=== PATIENT | male | born 1950 | race Caucasian/White ===

== ENCOUNTER → 2017-09-22 | Outpatient (CLI) | payer MEDICARE ==
[~2017-09-22] MED LIST: DUO-KAPS1 CAP PO; FLOMAX 0.40.4 MG/CAP PO; FOLIC ACID 11 MG/TA1 PO; LASIX 40MG TABL40 MG PO; LEVAQUIN 750MG750 M1 PO; THIAMINE 1100 MG/TAB PO; TOPROL XL 25MG25 MG PO; VITAMIN D 50,1.25 MG PO; ZESTRIL 5MG5 MG PO
[2017-09-22 13:10] LABS: MEAN CELL VOLUME 92 fl (80.0-100.0); MEAN CORPUSCULAR HGB CONC 32 g/dl (33.0-37.0); MEAN PLATELET VOLUME 9.7 fl (7.4-10.4); PLATELET COUNT 89 K/mm3 (130-400); RED BLOOD COUNT 3.94 M/mm3 (4.20-5.60)
[2017-09-22 13:11] LABS: HEMATOCRIT 36.3 % (42.0-52.0); HEMOGLOBIN 11.5 g/dl (13.5-18.0); MEAN CORPUSCULAR HEMOGLOBIN 29 pg (27.0-31.0)
[2017-09-22 13:20] LABS: CALCIUM 9.2 mg/dL (8.4-10.2); CREATININE, serum 0.63 mg/dL (0.66-1.25); MAGNESIUM 1.4 mg/dL (1.6-2.3); POTASSIUM 3.7 mmol/L (3.4-5.0)
== END ==
LOC: COL.LAB 12:25
PROVIDERS: Internal Medicine
DX: Z01.89 Encounter for other specified special examinations (principal)

== ENCOUNTER 2017-09-29 07:16 | Outpatient (CLI) | payer MEDICARE ==
[~2017-09-29] VITALS: Ht 182.9 cm; Wt 65.7 kg
[2017-09-29] MEDS ORDERED: VITAMIN D 50,1.25 MG PO (08:13)
[2017-09-29] MEDS ORDERED: MULTIPLE VITAMI1 CAP PO (08:13)
[2017-09-29] MEDS ORDERED: TOPROL XL 25MG25 MG PO (08:14)
[2017-09-29] MEDS ORDERED: FLOMAX 0.40.4 MG/CAP PO (08:14)
[2017-09-29] MEDS ORDERED: FOLIC ACID 11 MG/TA1 PO (08:15)
[2017-09-29] MEDS ORDERED: ZESTRIL 5MG5 MG PO (08:15)
[2017-09-29] MEDS ORDERED: NATURE'S BLEND100 M2 PO (08:16)
[2017-09-29] MEDS ORDERED: LASIX 40MG TABL40 MG PO (08:17)
[2017-09-29 08:21] VITALS: BP 133/82; PULSE 92; TEMP 97.7
[2017-09-29 09:35] VITALS: BP 127/78; PULSE 76
[2017-09-29 09:50] VITALS: BP 132/79; PULSE 75
[2017-09-29 10:05] VITALS: BP 124/76; PULSE 76
[2017-09-29 10:30] VITALS: BP 128/78; PULSE 76
== END 2017-09-29 10:50 | disposition home or self-care (01) ==
LOC: SDCO 07:16
DX: D64.9 Anemia, unspecified (principal); R16.1 Splenomegaly, not elsewhere classified; D72.829 Elevated white blood cell count, unspecified

== ENCOUNTER → 2017-10-22 | Outpatient (CLI) | payer MEDICARE ==
[~2017-10-22] MED LIST changes: +MULTIPLE VITAMI1 CAP PO; +NATURE'S BLEND100 M2 PO
[2017-10-23 00:07] LABS: FOLATE (FOLIC ACID) 14.3 ng/mL (7.0-31.4)
== END ==
LOC: COL.LAB 13:44
PROVIDERS: Family Medicine
DX: E55.9 Vitamin D deficiency, unspecified (principal); E53.8 Deficiency of other specified B group vitamins; R79.0 Abnormal level of blood mineral

== ENCOUNTER 2017-10-27 11:43 | Day surgery (SDC) | payer MEDICARE ==
[~2017-10-27] VITALS: Ht 182.9 cm; Wt 63.9 kg
[2017-10-27] VITALS (9 sets, daily range): BP systolic 132–150; BP diastolic 73–87; PULSE 62–87; TEMP 97.8–98.3
[2017-10-27 12:29] LABS: MEAN CELL VOLUME 96 fl (80.0-100.0); MEAN CORPUSCULAR HGB CONC 31 g/dl (33.0-37.0); PLATELET COUNT 140 K/mm3 (130-400); RED BLOOD COUNT 3.51 M/mm3 (4.20-5.60); REDCELL DISTRIBUTION WIDTH-CV 23.1 % (11.5-14.5)
[2017-10-27 12:30] LABS: HEMATOCRIT 33.7 % (42.0-52.0); HEMOGLOBIN 10.4 g/dl (13.5-18.0); MEAN CORPUSCULAR HEMOGLOBIN 30 pg (27.0-31.0)
[2017-10-27] MEDS ORDERED: HYDROXYURE500 MG/CAP PO (12:31)
[2017-10-27] MEDS ORDERED: ALDACTONE 25MG25 M1 PO (12:31)
[2017-10-27 12:42] LABS: INR 1.3 (0.8-3.0); PROTHROMBIN TIME 14.8 SECONDS (9.7-12.8)
[2017-10-27 12:52] LABS: CALCIUM 9.7 mg/dL (8.4-10.2); CREATININE, serum 0.61 mg/dL (0.66-1.25); POTASSIUM 4.3 mmol/L (3.4-5.0)
== END 2017-10-27 17:18 | disposition home or self-care (01) ==
LOC: COL.CAR 11:43
PROVIDERS: Internal Medicine Interventional Cardiology
DX: I25.10 Atherosclerotic heart disease of native coronary artery without angina pectoris (principal); R94.39 Abnormal result of other cardiovascular function study; I50.22 Chronic systolic (congestive) heart failure; I07.1 Rheumatic tricuspid insufficiency; I25.2 Old myocardial infarction; I42.6 Alcoholic cardiomyopathy; D72.829 Elevated white blood cell count, unspecified
CPT/HCPCS: J2250; J3010; Q9967

== ENCOUNTER → 2017-12-09 | Outpatient (CLI) | payer MEDICARE ==
[~2017-12-09] MED LIST changes: +ALDACTONE 25MG25 M1 PO; +HYDROXYURE500 MG/CAP PO
[2017-12-09 17:24] LABS: MEAN CELL VOLUME 101 fl (80.0-100.0); MEAN CORPUSCULAR HGB CONC 32 g/dl (33.0-37.0); MEAN PLATELET VOLUME 9.3 fl (7.4-10.4); PLATELET COUNT 57 K/mm3 (130-400); RED BLOOD COUNT 2.78 M/mm3 (4.20-5.60); REDCELL DISTRIBUTION WIDTH-CV 25.2 % (11.5-14.5)
[2017-12-09 17:28] LABS: HEMATOCRIT 28.1 % (42.0-52.0); HEMOGLOBIN 9.1 g/dl (13.5-18.0); MEAN CORPUSCULAR HEMOGLOBIN 33 pg (27.0-31.0)
[2017-12-09 17:34] LABS: CALCIUM 9.2 mg/dL (8.4-10.2); CREATININE, serum 0.81 mg/dL (0.66-1.25); POTASSIUM 4.2 mmol/L (3.4-5.0)
== END ==
LOC: COL.LAB 17:06
PROVIDERS: Internal Medicine Interventional Cardiology
DX: I70.213 Atherosclerosis of native arteries of extremities with intermittent claudication, bilateral legs (principal)

== ENCOUNTER → 2018-11-16 | Outpatient (CLI) | payer MEDICARE | LOC: COL.RAD 09:45 | DX: R16.1 Splenomegaly, not elsewhere classified (principal); D75.81 Myelofibrosis ==

== ENCOUNTER 2019-11-28 10:35 | Emergency (ER) | payer MEDICARE ==
[~2019-11-28] VITALS: Ht 182.9 cm; Wt 65.9 kg
[2019-11-28 10:47] VITALS: TEMP 97.6
[2019-11-28 11:26] LABS: MEAN CELL VOLUME 95 fl (80.0-100.0); MEAN CORPUSCULAR HGB CONC 30 g/dl (33.0-37.0); RED BLOOD COUNT 2.91 M/mm3 (4.20-5.60); REDCELL DISTRIBUTION WIDTH-CV 23.9 % (11.5-14.5)
[2019-11-28 11:30] LABS: HEMATOCRIT 27.5 % (42.0-52.0); HEMOGLOBIN 8.2 g/dl (13.5-18.0); MEAN CORPUSCULAR HEMOGLOBIN 28 pg (27.0-31.0)
[2019-11-28 11:33] LABS: PLATELET COUNT 23 K/mm3 (130-400)
[2019-11-28 11:39] LABS: ALANINE AMINOTRANSFERASE 28 U/L (21-72); ALBUMIN 3.3 gm/dL (3.5-5.0); ALKALINE PHOSPHATASE 199 U/L (50-136); ANION GAP 5 mmol/L (7-16); AST,SGOT 86 U/L (15-37); BILIRUBIN,TOTAL 1.3 mg/dL (0.0-1.0); BLOOD UREA NITROGEN 15 mg/dL (9-20); CARBON DIOXIDE 31 mmol/L (22-30); CHLORIDE 100 mmol/L (98-107); CREATININE, serum 0.63 (0.66-1.25); GLUCOSE 98 mg/dL (74-106); POTASSIUM 4.6 mmol/L (3.4-5.0); SODIUM 137 mmol/L (137-145); TOTAL PROTEIN 7.4 gm/dL (6.4-8.2)
[2019-11-28 11:52] LABS: TROPONIN-I < 0.012 ng/mL (0.000-0.035)
[2019-11-28 13:00] LABS: BAND 18 % (0-10); EOSINOPHIL 2 % (0-4); LYMPHOCYTE 15 % (20.0-51.0); METAMYELOCYTE 15 % (0-0); MYELOCYTE 3 % (0-0); NEUTROPHILS 34 % (42.0-75.2); NUCLEATED RED BLOOD CELL 11 (0-6)
[2019-11-28 13:02] LABS: PLATELET ESTIMATE DECREASED (NORMAL)
[2019-11-28 13:03] LABS: ANISOCYTOSIS 2+; POLYCHROMASIA 1+
[2019-11-28 13:04] LABS: SPHEROCYTE 2+
[2019-11-28] MEDS ORDERED: K-DUR 10 MEQ T10 MEQ PO (13:39)
[2019-11-28] MEDS ORDERED: LASIX 40MG TABL40 MG PO (13:39)
[2019-11-28 14:05] VITALS: BP 134/66; PULSE 89
[2019-11-29 08:23] LABS: PATHOLOGY DIFF REVIEW OK
== END 2019-11-28 14:03 | disposition home or self-care (01) ==
LOC: COL.ER 10:35
PROVIDERS: Emergency Medicine
DX: R60.0 Localized edema (principal); D69.6 Thrombocytopenia, unspecified; I50.9 Heart failure, unspecified; F17.210 Nicotine dependence, cigarettes, uncomplicated

== ENCOUNTER → 2019-12-12 | Outpatient (CLI) | payer MEDICARE ==
[~2019-12-12] MED LIST changes: +K-DUR 10 MEQ T10 MEQ PO
== END ==
LOC: COL.RAD 09:03
DX: R16.1 Splenomegaly, not elsewhere classified (principal); R18.8 Other ascites; R07.89 Other chest pain; R14.0 Abdominal distension (gaseous)

== ENCOUNTER 2020-03-28 13:19 | Emergency (ER) | payer MEDICARE ==
[~2020-03-28] VITALS: Ht 182.9 cm; Wt 66.8 kg
[2020-03-28 13:25] VITALS: TEMP 98.5
[2020-03-28 16:54] LABS: HEMATOCRIT 25.4 % (42.0-52.0); HEMOGLOBIN 7.5 g/dl (13.5-18.0); MEAN CELL VOLUME 97 fl (80.0-100.0); MEAN CORPUSCULAR HEMOGLOBIN 29 pg (27.0-31.0); MEAN CORPUSCULAR HGB CONC 30 g/dl (33.0-37.0); MEAN PLATELET VOLUME 12.1 fl (7.4-10.4); PLATELET COUNT 79 K/mm3 (130-400); RED BLOOD COUNT 2.62 M/mm3 (4.20-5.60); REDCELL DISTRIBUTION WIDTH-CV 23.2 % (11.5-14.5)
[2020-03-28 17:02] LABS: ALBUMIN 3.9 gm/dL (3.5-5.0); BILIRUBIN,TOTAL 1.1 mg/dL (0.0-1.0); C-REACTIVE PROTEIN 2.1 mg/dL (0.0-0.9); CALCIUM 8.4 mg/dL (8.4-10.2); CREATININE, serum 0.72 (0.66-1.25); POTASSIUM 4.4 mmol/L (3.4-5.0); TOTAL PROTEIN 8.6 gm/dL (6.4-8.2)
[2020-03-28 17:17] LABS: ANISOCYTOSIS 3+; BAND 6 % (0-10); EOSINOPHIL 2 % (0-4); LYMPHOCYTE 20 % (20.0-51.0); MYELOCYTE 12 % (0-0); NEUTROPHILS 38 % (42.0-75.2); NUCLEATED RED BLOOD CELL 1 (0-6); OVALOCYTES 1+; POIKILOCYTOSIS 2+
[2020-03-28 17:18] LABS: HYPOCHROMIA 3+; PLATELET ESTIMATE DECREASED (NORMAL)
[2020-03-28 17:19] LABS: POLYCHROMASIA 1+
[2020-03-28] MEDS ORDERED: DOXYCYCLINE 10100 MG PO (17:29)
[2020-03-28 17:50] VITALS: BP 127/61; PULSE 82
[2020-03-29 10:43] LABS: PATHOLOGY DIFF REVIEW OK +
== END 2020-03-28 17:50 | disposition home or self-care (01) ==
LOC: COL.ER 13:19
PROVIDERS: Emergency Medicine
DX: L03.116 Cellulitis of left lower limb (principal); I50.9 Heart failure, unspecified; F17.210 Nicotine dependence, cigarettes, uncomplicated

== ENCOUNTER 2020-03-29 13:26 | Outpatient (RCR) | payer MEDICARE ==
[~2020-03-29 13:26] MED LIST changes: +DOXYCYCLINE 10100 MG PO
--- NOTE | 2020-03-30 13:09 | NUR ---
Call received from family member reporting pt had fall at home and was found on floor when she went to pick him up for today's apt.Per family member,she called EMS to pick pt up.Report given to mark,ER Charge nurse of patient's pending blood orders.Notified [employer].
== END 2020-04-02 06:38 | disposition short-term general hospital (02) ==
LOC: EUO 13:26
DX: D47.4 Osteomyelofibrosis (principal)

== ENCOUNTER 2020-03-30 13:33 | Emergency (ER) | payer MEDICARE ==
[~2020-03-30] VITALS: Ht 182.9 cm; Wt 66.8 kg
[2020-03-30 14:26] LABS: MEAN CELL VOLUME 97 fl (80.0-100.0); MEAN CORPUSCULAR HGB CONC 30 g/dl (33.0-37.0); MEAN PLATELET VOLUME 9.7 fl (7.4-10.4); PLATELET COUNT 78 K/mm3 (130-400); RED BLOOD COUNT 2.31 M/mm3 (4.20-5.60); REDCELL DISTRIBUTION WIDTH-CV 22.6 % (11.5-14.5)
[2020-03-30 14:27] LABS: INR 1.4 (0.8-3.0); PROTHROMBIN TIME 15.6 SECONDS (9.7-12.8)
[2020-03-30 14:33] LABS: HEMATOCRIT 22.3 % (42.0-52.0); MEAN CORPUSCULAR HEMOGLOBIN 29 pg (27.0-31.0)
[2020-03-30 14:35] LABS: COLLECTION METHOD CLEAN CATCH
[2020-03-30 14:38] LABS: HEMOGLOBIN 6.6 g/dl (13.5-18.0)
[2020-03-30 14:41] LABS: MUCOUS Present /lpf; PH 7 (5-8); SQUAMOUS EPITHELIAL None Seen /hpf; URINE APPEARANCE Clear; URINE BACTERIA None Seen /hpf; URINE BILIRUBIN Negative (NEGATIVE); URINE BLOOD 2+ (NEGATIVE); URINE COLOR Yellow; URINE GLUCOSE Negative (NEGATIVE); URINE KETONE Negative (NEGATIVE); URINE LEUKOCYTE ESTERASE Negative (NEGATIVE); URINE NITRATE Negative (NEGATIVE); URINE PROTEIN(semi-quant) 1+ (NEGATIVE); URINE RBC 0-2 /hpf; URINE UROBILINOGEN >=4.0 mg/dL (NEGATIVE)
[2020-03-30 14:47] LABS: ALBUMIN 3.3 gm/dL (3.5-5.0); BILIRUBIN,TOTAL 1.1 mg/dL (0.0-1.0); CALCIUM 8.1 mg/dL (8.4-10.2); CREATININE, serum 0.8 (0.66-1.25); POTASSIUM 4.3 mmol/L (3.4-5.0); TOTAL PROTEIN 7.3 gm/dL (6.4-8.2)
[2020-03-30 14:58] LABS: TROPONIN-I 0.024 ng/mL (0.000-0.035)
[2020-03-30 15:12] LABS: BAND 6 % (0-10); BASOPHIL 2 % (0-2); EOSINOPHIL 2 % (0-4); LYMPHOCYTE 20 % (20.0-51.0); MYELOCYTE 12 % (0-0); NEUTROPHILS 40 % (42.0-75.2); NUCLEATED RED BLOOD CELL 3 (0-6)
[2020-03-30 15:13] LABS: ANISOCYTOSIS 3+; HYPOCHROMIA 3+; PLATELET ESTIMATE DECREASED (NORMAL); POIKILOCYTOSIS 1+; POLYCHROMASIA 1+; TEAR DROP CELLS 1+; TOXIC GRANULATION PRESENT
[2020-03-30 16:15] VITALS: BP 115/63; PULSE 76; TEMP 97.6
[2020-03-30 16:30] VITALS: BP 115/67; PULSE 75
== END 2020-03-30 16:30 | disposition short-term general hospital (02) ==
LOC: COL.ER 13:33
PROVIDERS: Emergency Medicine
DX: S06.5X0A Traumatic subdural hemorrhage without loss of consciousness, initial encounter (principal); R91.8 Other nonspecific abnormal finding of lung field; D64.9 Anemia, unspecified; D61.818 Other pancytopenia; W01.0XXA Fall on same level from slipping, tripping and stumbling without subsequent striking against object, initial encounter
CPT/HCPCS: J7030; P9040; Q9967